=== PATIENT | male | born 1990 | race African-American/Black ===

== ENCOUNTER 2018-11-26 22:15 | Emergency (ER) | payer OTHER ==
[~2018-11-26] VITALS: Ht 167.6 cm; Wt 127.0 kg
[2018-11-26] MEDS ORDERED: Omnipaque-300 100ml vial INJ ONE (22:45)
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
--- NOTE | 2018-11-26 23:13 | Diagnostic Imaging Report ---
Indication: Headache. Head injury Technique: Contiguous 5 mm thick transaxial imaging of the head obtained in a Siemens Sensation [address] scanner. Soft tissue and bone windows generated. Automatic Exposure Control was utilized. Total Dose length Product (DLP): 1464.[address] Dose Index Volume (CTDIvol): 70.38 mGy Comparison: none Findings: The size and configuration of the cortical sulci, basal cisterns, and ventricles are within normal limits for age. There is no mass effect, midline shift, or edema identified. There is no evidence of acute hemorrhage or abnormal intra-axial or extra-axial fluid collections. The bones and soft tissues are unremarkable. There is a cavum septum pellucidum. Impression: No mass effect, edema or acute bleed. [facility] has communicated the preliminary results to the Emergency Department. Their findings are largely concordant with this report. The CT scanner at [facility] is accredited by the [employer] and the scans are performed using dose optimization techniques as appropriate to a performed exam including Automatic Exposure control.
[2018-11-26] MEDS ORDERED: Morphine Sulfate 4mg/ml Inj (IV USE ONLY) IVP ONE (23:45)
[2018-11-26 23:55] LABS: BASOPHILS % (AUTO) 0.9 % (0.0-2.0); EOSINOPHILS % (AUTO) 0.1 % (0.0-3.0); HEMATOCRIT 46.6 % (42.0-52.0); LYMPHOCYTES % (AUTO) 6.7 % (20.0-45.0); MEAN CORPUSCULAR VOLUME 89 FL (80-99); MONOCYTES % (AUTO) 8.7 % (1.0-10.0); NEUTROPHILS % (AUTO) 83.6 % (45.0-75.0); PLATELET COUNT 232 K/UL (150-450); RED BLOOD COUNT 5.22 M/UL (4.70-6.10); RED CELL DISTRIBUTION WIDTH 12.3 % (11.6-14.8)
--- NOTE | 2018-11-27 | NUR ---
ED Nurse Note: pt iv line started, fluids infusing as tolerated, medicated for pain as ordered, pt asked for girlfriend to come in, when she arrived she immediately started to say we did not place iv line wrong and out at nurses station yelling "where is the bitch who put his iv in wrong", immediately went to assess, asif blake at bedside attempting to console pt and informed him that line is appropriate, fluids are infusing, noted with blood return, no /ss of sweling noted, pt states it was burning after morphine infused but it stopped now, line appears to have been manipulated, tapes have been removed and pt puled out line, pt demanding it be replaced, robyn thapa attempted and pt refuses, pt now yelling and cursing at md and all staff that we dont know what we are doing, md sat with pt along time attempting to cnsole and explain reasons for ct-scan, pt demanding x-ray only and states if md cant see on x-ray he is stupid, pt dressng and demanding to leave, pt also refuses t sign AMA form, at bedside and charge nurse also, pt eloped from department.
[2018-11-27 00:05] LABS: ANION GAP 12 mmol/L (5-15); BLOOD UREA NITROGEN 12 mg/dL (7-18); CALCIUM 9.5 MG/DL (8.5-10.1); CARBON DIOXIDE 23 MMOL/L (21-32); CHLORIDE 101 MMOL/L (98-107); CREATININE 1.2 MG/DL (0.55-1.30); POTASSIUM 4.9 MMOL/L (3.5-5.1); SODIUM 136 MMOL/L (136-145)
[2018-11-27 00:15] LABS: ALANINE AMINOTRANSFERASE 21 U/L (12-78); ALBUMIN 2.8 G/DL (3.4-5.0); ALKALINE PHOSPHATASE 75 U/L (46-116); ASPARTATE AMINO TRANSFERASE 32 U/L (15-37)
[2018-11-27 00:16] VITALS: BP 113/77
--- NOTE | 2018-11-27 00:16 | NUR ---
ED Nurse Note: pt refusing iv line access, pt raising voice, using inappopriate language, pt refusing CT. pt informed regarding the reason why CT ordered, pt verbalized understanding possible consequences and risks including .
--- NOTE | 2018-11-27 11:15 | Diagnostic Imaging Report ---
Indication: Left wrist pain Findings: 3 views of the left wrist were obtained. No acute fractures, malalignment, erosions or periostitis are identified. Soft tissue swelling noted. Impression: No acute findings.
== END 2018-11-27 00:16 | disposition left against medical advice (07) ==
LOC: EMR 23:00
DX: R04.2 Hemoptysis (principal); I10 Essential (primary) hypertension; R07.81 Pleurodynia; M25.532 Pain in left wrist; R10.9 Unspecified abdominal pain; V43.52XA Car driver injured in collision with other type car in traffic accident, initial encounter; Y92.410 Unspecified street and highway as the place of occurrence of the external cause
CPT/HCPCS: 36415; 70450; 73110; 80053; 84484; 85025; 93005; 96361; 96374; 96375; J2270; J2405; Q9965; Z7502; 99284